=== PATIENT | female | born 1945 | race Caucasian/White ===

== ENCOUNTER 2016-12-09 09:46 | Emergency (ER) | payer OTHER, MEDICARE ==
[2016-12-09 10:26] VITALS: BP 174/60; PULSE 78; RESP 18; O2SAT 97
--- NOTE | 2016-12-09 10:41 | UCPHY ---
H & P Time Seen by Provider: 12/09/16 09:55 Patient Type: Established HPI/ROS: This patient has knee and foot pain she fell down 3 stairs on December 08, the day before arrival when she slipped on ice. She denies any other injuries. She reports moderate pain to the medial left knee at baseline then goes to 8/10 intensity with walking or other movements. She reports the foot pain is vague in mild notable in the lateral aspect of the midfoot and forefoot. She is still able to bear weight on the foot. ROS: She reports no head injury. No other HEENT complaints. Musculoskeletal: No neck or back pain no other extremity injuries. Neuro: No numbness or tingling integumentary: No lacerations. 7 point ROS is otherwise negative Smoking Status: Never smoked Physical Exam: Physical Exam Vital signs are normal. General: Pleasant obese 71-year-old female No acute distress HEENT: Atraumatic. Eyes: Pupils equal and react to light. Extraocular motions are intact. Lungs: No respiratory distress. No chest wall tenderness Back: Nontender Extremities: Atraumatic except for left lower extremity Left knee exam: She has moderate medial tenderness over the MCL ligament. Minimal posterior tenderness. No significant effusion. No patellar tenderness. She has increased pain with valgus stress to the knee but no notable laxity. Ramila's reveals mild laxity but it seems symmetric with the uninjured knee. No pain or laxity with varus stress. Cardiac: Brisk capillary refill is intact throughout. Pulses are 2+ and symmetric in the affected extremity. Skin: No rash or pallor. Neuro: Alert and oriented x3 with no sensorimotor deficits. Initial differential diagnosis: MCL sprain, tibial plateau fracture, foot contusion versus sprain versus fracture Constitutional: Initial Vital Signs Heart Rate 78 12/09/16 09:54 Respiratory Rate 18 12/09/16 09:54 Blood Pressure 174/60 H 12/09/16 09:54 O2 Sat (%) 97 12/09/16 09:54 O2 Delivery Mode Room Air Allergies/Adverse Reactions: codeine [Codeine] Allergy (Unknown, Verified 05/23/16 15:27) MAKES SPACY metformin Allergy (Verified 12/09/16 09:52) Home Medications: Medication Instructions Recorded ASPIRIN 05/23/16 Cephalexin [Keflex] 500 mg PO BID 10 Days 05/23/16 Coq-10 05/23/16 GABAPENTIN 05/23/16 INSULIN LISPRO humALOG 75/25 05/23/16 LEVOTHYROXINE SODIUM 05/23/16 Labetalol HCl 05/23/16 Lipitor 05/23/16 Losartan Potassium 05/23/16 Lumigan 0.01% (*) 05/23/16 amLODIPine BESYLATE 05/23/16 MDM/Departure - MDM Diagnostics: Knee x-ray: I read this as negative. Dr. Vila, our radiologist is concerned about potential subtle tibial plateau fracture. CT scan of the knee reveals no tibial plateau fracture. Foot x-ray: Negative for fracture by my interpretation ED Course/Re-evaluation: I counseled patient regarding her MCL sprain. She is placed in a knee immobilizer. I explained the need to follow up with orthopedic physician. I think that her foot injuries a contusion or minimal strain that does require splinting. No other evidence of significant injuries. - Depart Disposition: Home, Routine, Self-Care Clinical Impression: Knee MCL sprain Qualifiers: Encounter type: initial encounter Laterality: left Qualifier Code: (S83.412A) Sprain of medial collateral ligament of left knee, initial encounter Condition: Good Instructions: Knee Sprain (ED), Crutch Instructions (ED) Additional Instructions: Diagnosis: MCL sprain if knee 2. Foot contusion or strain Plan: Cane or crutches Knee immobilizer whenever up and about Call the orthopedist-Dr. Blevins listed below to arrange follow-up appointment for this week for further evaluation. Ibuprofen and Tylenol as needed for pain Return for any significant worsening despite the treatment plan. Referrals: Jermaine Chapa MD [Primary Care Provider] - As per Instructions Lester Blevins MD [Medical Doctor] - As per Instructions - PQRS PQRS Measurement: 134: Depression screening and followup, PRIME MD-PHQ2 (12 years and older) Over the last 2 weeks, how often have you been bothered by any of the following problems? 1. Feeling down, depressed, or hopeless? 2. Little interest or pleasure in doing things? Patient answered no to both 1 and 2 130: Documentation of medications. Reviewed all patient medications, doses, route and frequency. 226: Do you smoke? 47: 65 and older: Advanced care planning. Patient designates surrogate decision maker as sister-Lori Torres 51: 18 years old and older with diagnosis of COPD, spirometry performance. NA 52: 18 years old and older with COPD and symptoms of COPD or FEV1<60% predicted prescribed a B Agonist. NA
--- NOTE | 2016-12-09 10:44 | DX ---
Left Knee , 5 views, including a sunrise view, 10:07 a.m. History: Pain post trauma. Fall. Comparison: None Findings: There is possibly a medial corner fracture of the medial tibial plateau seen on the oblique view. There is a small cortical development involving the lateral margin of the lateral tibial plate au. There is hypertrophic ridging of the posterior tibial plateau. No effusion or dislocation is iden tified. There are surgical clips along the posterior medial aspect of the distal thigh and proximal c michael suggesting prior vascular disease. Impression: Possible medial tibial plateau corner fracture and focal impaction fracture of the latera l tibial plateau weightbearing surface. Results called to Dr. Jan Rebolledo at 10:38 a.m.
--- NOTE | 2016-12-09 10:47 | DX ---
Left Foot , Three History:Pain post trauma. Fall. Fifth metatarsal pain. Comparison: None Findings: No fracture or malalignment is identified. There is chronic periosteal thickening of the se cond and fourth metatarsals and system with chronic stress. There is osteoarthritic change with promi nent subcortical cyst formation of multiple joints in the mid foot. There is mild paste planus. There is a prominent plantar calcaneal spur. There is dorsal soft tissue swelling at the level of the mid foot. 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 Impression: No fracture identified. The fifth metatarsal is specifically normal.
--- NOTE | 2016-12-09 11:20 | CT ---
CT Lower Extremity, Left Knee History: Left knee injury. Evaluate for possible tibial plateau fracture. Comparison: X-rays performed today. Technique: 0.625 mm helical images were obtained of the knee without contrast. Multiplanar reformatio n was performed. Radiation dose reduction technique was utilized. Findings: No evidence for acute fracture or dislocation. There is mild joint narrowing and periarticu lar spurring in all three compartments and subarticular sclerosis. No significant joint effusion. No evidence for soft tissue mass or abnormal fluid collection. Impression: No evidence for acute fracture. Mild tricompartment degenerative change. Results called to Dr. Amilcar Rebolledo.
== END 2016-12-09 11:27 | disposition home or self-care (01) ==
LOC: CED 09:46
DX: S83.412A Sprain of medial collateral ligament of left knee, initial encounter (principal); W00.1XXA Fall from stairs and steps due to ice and snow, initial encounter; Z88.5 Allergy status to narcotic agent
CPT/HCPCS: 73564; 73630; 73700; G0463; L1830; 99214-PO

== ENCOUNTER 2017-04-08 20:00 | Observation (INO) | payer OTHER, MEDICARE ==
[2017-04-08] MEDS ORDERED: predniSONE 20 MG TAB PO ONE (20:15)
[2017-04-08] MEDS ORDERED: IPRATROPIUM/ALBUTEROL 3 ML DEYVIAL IH ONE (20:16)
--- NOTE | 2017-04-08 20:29 | EDPHY ---
H & P - Medical/Surgical History Hx Asthma: No Hx Chronic Respiratory Disease: No Hx Diabetes: Yes Hx Cardiac Disease: Yes Hx Renal Disease: No Hx Cirrhosis: No Hx Alcoholism: No Hx HIV/AIDS: No Hx Splenectomy or Spleen Trauma: No Other PMH: CABG, HTN, DM, glaucoma, hyperlipidemia - Social History Smoking Status: Never smoked Constitutional: Initial Vital Signs Temperature (C) 37 C 04/08/17 20:09 Heart Rate 81 04/08/17 20:09 Respiratory Rate 18 04/08/17 20:09 Blood Pressure 169/104 H 04/08/17 20:09 O2 Sat (%) 95 04/08/17 20:09 O2 Delivery Mode Room Air Allergies/Adverse Reactions: metformin Allergy (Intermediate, Verified 04/08/17 20:13) Diarrhea codeine [Codeine] Allergy (Unknown, Verified 04/08/17 20:13) MAKES SPACY Home Medications: Medication Instructions Recorded ASPIRIN 05/23/16 Coq-10 05/23/16 GABAPENTIN 05/23/16 INSULIN LISPRO humALOG 75/25 05/23/16 LEVOTHYROXINE SODIUM 05/23/16 Labetalol HCl 05/23/16 Lipitor 05/23/16 Losartan Potassium 05/23/16 Lumigan 0.01% (*) 05/23/16 amLODIPine BESYLATE 05/23/16 Ipratropium 0.03% Nasal 04/08/17 Medical Decision Making - Diagnostics Imaging Results: Imaging Impressions Chest X-Ray 04/08/17 20:16 Impression: Suspect low-grade congestive heart failure. There may be an element of airways disease. Results called and discussed with Buddy Vance MD on 04/08/2017 at 21:11 Imaging: Discussed imaging studies w/ faculty i on call medical assistant Radiologist, I viewed and interpreted images myself ED Course/Re-evaluation: CHIEF COMPLAINT: Worsening painful cough HISTORY OF PRESENT ILLNESS: This patient is a 71 year old female complaining of painful persistent cough worsening over the last week. She saw her primary care physician, Dr. Chapa, last , who prescribed Ipratropium spray for cold-like symptoms. She states she is concerned because she has often developed bronchitis following colds in the past. She recalls that she developed bronchitis 2-3 times a year several years ago, and that she had whooping cough when younger. She reports her cough has worsened since , and she is coughing frequently, and cannot draw a powerful breath. She endorses achiness. She denies fever, chills, nausea, vomiting, or other associated symptoms. REVIEW OF SYSTEMS: A 10 point review of systems was performed and is negative with the exception of the elements mentioned in the history of present illness. PHYSICAL EXAM: General Appearance: Alert, well hydrated, appropriate, and non-toxic appearing. Head: Atraumatic without scalp tenderness or obvious injury Eyes: Pupils equal, round, reactive to light and accommodation, EOMI, no trauma , no injection. Ears: Clear bilaterally, no perforation, normal landmarks Nose: Atraumatic, no rhinorrhea, clear. Throat: White phlegm in posterior pharynx. There is no erythema, no lesions, normal tonsils, mucus membranes moist. Neck: Supple, non-tender, no lymphadenopathy. Respiratory: Coarse rhonchi in all reno. No retractions, no distress, and no accessory muscle use. Cardiovascular: Regular rate and rhythm, no murmurs, rubs, or gallops. Good capillary refill all extremities. Gastrointestinal: Abdomen is soft, non-tender, non-distended, no masses, no rebound, no guarding, no peritoneal signs. Musculoskeletal: Normal active ROM of all extremities, atraumatic. Neurological: Alert, appropriate, and interactive. Nonfocal neuro exam. Skin: No rashes, good turgor, no nodules on palpation. PAST MEDICAL HISTORY: Hypertension, diabetes, CABG, glaucoma, hyperlipidemia PAST SURGICAL HISTORY: Noncontributory SOCIAL HISTORY: Nonsmoker. DIAGNOSTICS/PROCEDURES/CRITICAL CARE TIME: The 12 lead EKG was interpreted by myself. See hard copy and/or "tracemaster" electronic copy for interpretation. Atrial fibrillation, ventricular rate 92. DIFFERENTIAL DIAGNOSIS: The differential diagnosis for the patient's fever included but was not limited to bronchitis, influenza, pneumonia, viral syndrome, and sepsis. MEDICAL DECISION MAKING: This patient is a 71 year old female presenting with a one-week history of persistent productive cough. Physical exam reveals phlegm in the posterior pharynx and coarse rhonchi in all reno, but no noticeable decrease in breath sounds. Plan for flu swab and chest x-ray. Plan to administer DuoNeb and 40mg PO Prednisone to relieve symptoms. Flu swab negative. X-ray shows cardiomegaly with evidence of congestive failure and possible bronchitis. Reassessed patient. Discussed x-ray results with the patient. The patient appears fatigued. Plan for EKG and to order labs including CBC, CHEM, and Troponin to further assess her cardiomegaly and fatigue. The patient states she is feeling better following administration of DuoNeb treatment and oral Prednisone. 20:58 EKG shows atrial fibrillation with controlled ventricular rate. The patient states she had atrial fibrillation prior to her CABG but states she has not followed up with cardiology for many years. She was unaware that she had been in atrial fibrillation. She states she has seen Dr. Marquez, external grinder tool , in the past, possibly last around 2011. 21:[address] Pendleton, radiologist. He reviewed the patient's chest x-ray and agrees with my impression of cardiomegaly and low-grade congestive failure. Plan for admission given her new onset atrial fibrillation and bronchitis. Labs show elevated BNP, BUN, and WBC. Lab results support suspected congestive heart failure. Plan to administer 1gm IV Ceftriaxone and 500mg IV Azithromycin to treat infection. 21:46 Spoke with hospitalist service. Dr. Deras accepts admission for new onset atrial fibrillation, congestive heart failure, and bronchitis. - Data Points Laboratory Results: Laboratory Results 04/08/17 21:00 04/08/17 21:00 04/08/17 04/08/17 04/08/17 21:00 21:00 21:00 WBC 11.70 10^3/uL H 10^3/uL (3.80-9.50) RBC 4.50 10^6/uL 10^6/uL (4.18-5.33) Hgb 13.5 g/dL g/dL (12.6-16.3) Hct 39.0 % % (38.0-47.0) MCV 86.7 fL fL (81.5-99.8) MCH 30.0 pg pg (27.9-34.1) MCHC 34.6 g/dL g/dL (32.4-36.7) RDW 12.7 % % (11.5-15.2) Plt Count 238 10^3/uL 10^3/uL (150-400) MPV 10.1 fL fL (8.7-11.7) Neut % (Auto) 76.5 % H % (39.3-74.2) Lymph % (Auto) 11.9 % L % (15.0-45.0) [place] % (Auto) 7.4 % % (4.5-13.0) Eos % (Auto) 2.6 % % (0.6-7.6) Baso % (Auto) 0.4 % % (0.3-1.7) Nucleat RBC Rel Count 0.0 % % (0.0-0.2) Absolute Neuts (auto) 8.95 10^3/uL H 10^3/uL (1.70-6.50) Absolute Lymphs (auto) 1.39 10^3/uL 10^3/uL (1.00-3.00) Absolute Monos (auto) 0.87 10^3/uL H 10^3/uL (0.30-0.80) Absolute Eos (auto) 0.30 10^3/uL 10^3/uL (0.03-0.40) Absolute Basos (auto) 0.05 10^3/uL 10^3/uL (0.02-0.10) Absolute Nucleated RBC 0.00 10^3/uL 10^3/uL (0-0.01) Immature Gran % 1.2 % H % (0.0-1.1) Immature Gran # 0.14 10^3/uL H 10^3/uL (0.00-0.10) PT 14.0 SEC SEC (12.0-15.0) INR 1.11 (0.83-1.16) APTT 30.3 SEC SEC (23.0-38.0) Sodium 137 mEq/L mEq/L (134-144) Potassium 4.6 mEq/L mEq/L (3.5-5.2) Chloride 102 mEq/L mEq/L (97-110) Carbon Dioxide 18 mEq/l L mEq/l (22-31) Anion Gap 17 mEq/L H mEq/L (8-16) BUN 35 mg/dL H mg/dL (7-23) Creatinine 1.4 mg/dL H mg/dL (0.6-1.0) Estimated GFR 37 Glucose 217 mg/dL H mg/dL (70-100) Calcium 9.3 mg/dL mg/dL (8.5-10.4) Troponin I < 0.012 ng/mL ng/mL (0-0.034) NT-Pro-B Natriuret Pep 1830 pg/mL H pg/mL (0-125) Influenza A,B Rapid 04/08/17 20:20 WBC RBC Hgb Hct MCV MCH MCHC RDW Plt Count MPV Neut % (Auto) Lymph % (Auto) [place] % (Auto) Eos % (Auto) Baso % (Auto) Nucleat RBC Rel Count Absolute Neuts (auto) Absolute Lymphs (auto) Absolute Monos (auto) Absolute Eos (auto) Absolute Basos (auto) Absolute Nucleated RBC Immature Gran % Immature Gran # PT INR APTT Sodium Potassium Chloride Carbon Dioxide Anion Gap BUN Creatinine Estimated GFR Glucose Calcium Troponin I NT-Pro-B Natriuret Pep Influenza A,B Rapid NEGATIVE FOR FLU (NEGATIVE) Medications Given: Discontinued Medications Albuterol/Ipratropium (Duoneb) 3 ml IH EDNOW ONE Stop: 04/08/17 20:17 Last Admin: 04/08/17 20:25 Dose: 3 ml Ceftriaxone Sodium/Dextrose (Rocephin 1 Gm (Premix)) 50 mls @ 100 mls/hr IV EDNOW ONE PRN Reason: Protocol Stop: 04/08/17 22:08 Last Admin: 04/08/17 21:40 Dose: 50 mls Prednisone (Prednisone) 40 mg PO EDNOW ONE Stop: 04/08/17 20:16 Last Admin: 04/08/17 20:25 Dose: 40 mg Departure - Departure Disposition: [facility] Inpatient Acute Clinical Impression: Bronchitis, Atrial fibrillation with controlled ventricular response, Congestive heart failure Condition: Fair Referrals: Jermaine Chapa MD [Primary Care Provider] - As per Instructions Report Scribed for: Buddy Vance Report Scribed by: Reyna Manning Date of Report: 04/08/17 Time of Report: 20:29
--- NOTE | 2017-04-08 21:00 | CPEKG ---
Heart Rate: 92 RR Interval: 652 QRSD Interval: 90 QT Interval: 376 QTC Interval: 466 QRS [place]: 55 T Wave [place]: 50 EKG Severity - ABNORMAL ECG - EKG Impression: ATRIAL FIBRILLATION Electronically Signed By: Buddy Vance 08-Apr-2017 22:51:15
[2017-04-08 21:11] LABS: % IMMATURE GRANULYOCYTES 1.2 % (0.0-1.1); ABSOLUTE IMMATURE GRANULOCYTES 0.14 10^3/uL (0.00-0.10); ADD DIFF? NO; ADD MORPH? NO; ADD SCAN? NO; ATYPICAL LYMPHOCYTE FLAG 0 (0-99); FRAGMENT RBC FLAG 0 (0-99); HEMOGLOBIN 13.5 g/dL (12.6-16.3); LEFT SHIFT FLG 10 (0-99); LIPEMIA HEMOLYSIS FLAG 90 (0-99); MEAN CELL HEMOGLOBIN CONCENTR. 34.6 g/dL (32.4-36.7); MEAN CELL VOLUME 86.7 fL (81.5-99.8); MEAN PLATELET VOLUME 10.1 fL (8.7-11.7); PLATELET CLUMPS FLAG 0 (0-99); PLATELET COUNT 238 10^3/uL (150-400); RED CELL DISTRIBUTION WIDTH 12.7 % (11.5-15.2)
[2017-04-08 21:18] LABS: INR 1.11 (0.83-1.16)
[2017-04-08 21:19] LABS: APTT 30.3 SEC (23.0-38.0)
[2017-04-08 21:26] LABS: ANION GAP 17 mEq/L (8-16); CALCIUM 9.3 mg/dL (8.5-10.4); CARBON DIOXIDE 18 mEq/l (22-31); CHLORIDE 102 mEq/L (97-110); CREATININE 1.4 mg/dL (0.6-1.0); GLOMERULAR FILTRATION RATE 37; GLUCOSE 217 mg/dL (70-100); POTASSIUM 4.6 mEq/L (3.5-5.2); SODIUM 137 mEq/L (134-144)
[2017-04-08 21:32] LABS: TROPONIN I < 0.012 ng/mL (0-0.034)
[2017-04-08] MEDS ORDERED: AZITHROMYCIN IV 500 MG in NS 250 ML IV ONE (21:39)
[2017-04-09] MEDS ORDERED: ONDANSETRON DISINTEGRATING 4 MG TAB PO PRN (00:16)
[2017-04-09] MEDS ORDERED: ONDANSETRON 4 MG/2 ML VIAL IVP PRN (00:16)
[2017-04-09] MEDS ORDERED: ACETAMINOPHEN 325 MG TAB PO PRN (00:16)
[2017-04-09] MEDS ORDERED: ALBUTEROL 3 ML DEYVIAL IH PRN (00:16)
[2017-04-09] MEDS ORDERED: D50W 25 GM/50 ML SYR IVP PRN (00:19)
[2017-04-09] MEDS ORDERED: INSULIN GLARGINE 100 UNITS/ML SYRINGE SC SCH (00:19)
--- NOTE | 2017-04-09 00:28 | PDGENHP ---
History and Physical - Chief Complaint cough, shortness of breath - History of Present Illness Patient is a 71 year old female with history of CAD s/p CABG (2010), HTN, HLD, DM2 who presented to the [facility] with complaint of cough, congestion and shortness of breath. Patient states her symptoms started about 5 days ago, with nasal congestion, headache, sneezing. This progressed to cough, which became productive, as well as shortness of breath with exertion. She went to her PMD's office about 3 days ago, was told she likely had a viral infection, was given a prescription for nebs and symptomatic treatment. Today, symptoms have continued to worsen, the cough is preventing her from resting, she describes significant shortness of breath with minimal movements, so she went to the [facility] for evaluation. She denies any associated chest pain, palpitations, lightheadedness , nausea, vomiting, diarrhea. She also denies any recent travel or sick contacts On arrival at the [facility], patient was afebrile and hemodynamically stable, saturating well on room air. Labs revealed mild leukocytosis, negative troponin , elevated BNP. EKG revealed afib (new), stable rate. CXR did not show obvious infiltrate, but did show findings consistent with bronchitis. She was given IV antibiotics and transferred to [facility] for admission. History Information - Allergies/Home Medication List Allergies/Adverse Reactions: metformin Allergy (Intermediate, Verified 04/08/17 20:13) Diarrhea codeine [Codeine] Allergy (Unknown, Verified 04/08/17 20:13) MAKES SPACY Home Medications: ASPIRIN 05/23/16 [Last Taken Unknown] Coq-10 05/23/16 [Last Taken Unknown] GABAPENTIN 05/23/16 [Last Taken Unknown] INSULIN LISPRO humALOG 75/25 05/23/16 [Last Taken Unknown] LEVOTHYROXINE SODIUM 05/23/16 [Last Taken Unknown] Labetalol HCl 05/23/16 [Last Taken Unknown] Lipitor 05/23/16 [Last Taken Unknown] Losartan Potassium 05/23/16 [Last Taken Unknown] Lumigan 0.01% (*) 05/23/16 [Last Taken Unknown] amLODIPine BESYLATE 05/23/16 [Last Taken Unknown] Ipratropium 0.03% Nasal 04/08/17 [Last Taken Unknown] I have personally reviewed and updated: family history, medical history, social history, surgical history - Past Medical History Additional medical history: CAD s/p CABG 2009, had brief episode of afib ronny- operatively, but none since. HTN. HLD. DM2 - Surgical History Additional surgical history: CABG. Shoulder arthroscope - Family History Positive for: CAD (in father) - Social History Smoking Status: Former smoker (x 30 years, quit about 30 years ago) Alcohol Use: None Drug Use: None Additional social history: Patient lives alone, walks independently, independent in ADLs at baseline Review of Systems ROS: 10pt was reviewed & negative except for what was stated in HPI & below Physical Exam Temp Pulse Resp BP Pulse Ox 37.2 C 88 16 158/74 H 95 04/08/17 23:30 04/08/17 23:30 04/08/17 23:30 04/08/17 23:30 04/08/17 23:30 O2 (L/minute) 2 Constitutional: no apparent distress, appears nourished, not in pain, obese Eyes: PERRL, anicteric sclera, EOMI Ears, Nose, Mouth, Throat: moist mucous membranes, hearing normal, ears appear normal, no oral mucosal ulcers Cardiovascular: regular rate and rhythym, no murmur, rub, or gallop, pulses symmetric bilaterally, No JVD, No edema Peripheral Pulses: 2+: dorsalis-pedis (R), dorsalis-pedis (L) Respiratory: no respiratory distress, no rales or rhonchi, clear to auscultation Gastrointestinal: normoactive bowel sounds, soft, non-tender abdomen, no palpable masses, No tenderness, No guarding, No rebound Genitourinary: no bladder fullness, no bladder tenderness Skin: warm, normal color, no rashes or abrasions, no fluctuance, no induration, No mottled Musculoskeletal: full muscle strength, no muscle tenderness, normal joint ROM, no joint effusions Neurologic: AAOx3, sensation intact bilaterally, CN II-XII Intact, No weakness, No numbness, No facial droop Psychiatric: interacting appropriately, not anxious, not encephalopathic, thought process linear Lab Data & Imaging Review 04/09/17 03:42 04/08/17 21:00 WBC 11.70 10^3/uL (3.80-9.50) H 04/08/17 21:00 RBC 4.50 10^6/uL (4.18-5.33) 04/08/17 21:00 Hgb 13.5 g/dL (12.6-16.3) 04/08/17 21:00 Hct 39.0 % (38.0-47.0) 04/08/17 21:00 MCV 86.7 fL (81.5-99.8) 04/08/17 21:00 MCH 30.0 pg (27.9-34.1) 04/08/17 21:00 MCHC 34.6 g/dL (32.4-36.7) 04/08/17 21:00 RDW 12.7 % (11.5-15.2) 04/08/17 21:00 Plt Count 238 10^3/uL (150-400) 04/08/17 21:00 MPV 10.1 fL (8.7-11.7) 04/08/17 21:00 Neut % (Auto) 76.5 % (39.3-74.2) H 04/08/17 21:00 Lymph % (Auto) 11.9 % (15.0-45.0) L 04/08/17 21:00 [place] % (Auto) 7.4 % (4.5-13.0) 04/08/17 21:00 Eos % (Auto) 2.6 % (0.6-7.6) 04/08/17 21:00 Baso % (Auto) 0.4 % (0.3-1.7) 04/08/17 21:00 Nucleat RBC Rel Count 0.0 % (0.0-0.2) 04/08/17 21:00 Absolute Neuts (auto) 8.95 10^3/uL (1.70-6.50) H 04/08/17 21:00 Absolute Lymphs (auto) 1.39 10^3/uL (1.00-3.00) 04/08/17 21:00 Absolute Monos (auto) 0.87 10^3/uL (0.30-0.80) H 04/08/17 21:00 Absolute Eos (auto) 0.30 10^3/uL (0.03-0.40) 04/08/17 21:00 Absolute Basos (auto) 0.05 10^3/uL (0.02-0.10) 04/08/17 21:00 Absolute Nucleated RBC 0.00 10^3/uL (0-0.01) 04/08/17 21:00 Immature Gran % 1.2 % (0.0-1.1) H 04/08/17 21:00 Immature Gran # 0.14 10^3/uL (0.00-0.10) H 04/08/17 21:00 PT 14.0 SEC (12.0-15.0) 04/08/17 21:00 INR 1.11 (0.83-1.16) 04/08/17 21:00 APTT 30.3 SEC (23.0-38.0) 04/08/17 21:00 Sodium 137 mEq/L (134-144) 04/08/17 21:00 Potassium 4.6 mEq/L (3.5-5.2) 04/08/17 21:00 Chloride 102 mEq/L (97-110) 04/08/17 21:00 Carbon Dioxide 18 mEq/l (22-31) L 04/08/17 21:00 Anion Gap 17 mEq/L (8-16) H 04/08/17 21:00 BUN 35 mg/dL (7-23) H 04/08/17 21:00 Creatinine 1.4 mg/dL (0.6-1.0) H 04/08/17 21:00 Estimated GFR 37 04/08/17 21:00 Glucose 217 mg/dL (70-100) H 04/08/17 21:00 Calcium 9.3 mg/dL (8.5-10.4) 04/08/17 21:00 Troponin I < 0.012 ng/mL (0-0.034) 04/08/17 21:00 NT-Pro-B Natriuret Pep 1830 pg/mL (0-125) H 04/08/17 21:00 Influenza A,B Rapid NEGATIVE FOR FLU (NEGATIVE) 04/08/17 20:20 Visualized and Interpreted Chest x-ray results: Yes Chest X-Ray results: no infiltrate Visualized and Interpreted EKG results: Yes EKG additional interpertation: afib, without evidence of ischemia Assessment & Plan Assessment: Patient is a 71 year old female with DM2, HTN, HLD, CAD who presents to the [facility] with 5 days of URI type symptoms and significant dyspnea. [facility] evaluation reveals likely bronchitis, new onset afib, possibly new onset CHF. Plan: # dyspnea Patient's report of 5 days of cough, congestion, as well as the mild leukocytosis and cxr clear of infiltrates, suggest an acute bronchitis. She was initiated on antibiotics for presumed bacterial bronchitis in the [facility], will continue azithromycin coverage. Patient also has a distant smoking history, so reactive airway disease/copd, triggered by acute infection may also be contributing. Patient denies history of CHF, but BNP is elevated. Will rule out cardiac component of dyspnea with TTE, r/o ACS with serial troponin. # atrial fibrillation Rate controlled. CHADSVASc is > 4 and patient agreeable to systemic anticoagulation. Initiated eliquis, currently not requiring rate controlling meds. Will cont to monitor on telemetry. # DM2, hyperglycemia Hyperglycemic on presentation, she states her DM2 has been poorly controlled recently. Hyperglycemia likely exacerbated by acute infection. Will resume home long acting insulin, provide sliding scale coverage and check HbA1C. # hypertension Stable, continue home meds once confirmed. #dispo: admit to observation status # gen: cardiac/diabetic diet DVT ppx: lovenox if admitted for > 24 hours Full code
[2017-04-09] MEDS: GUAIFENESIN/DM 10 ML UDCUP PO PRN ×3 (01:26→11:29)
[2017-04-09 04:22] LABS: % IMMATURE GRANULYOCYTES 1.5 % (0.0-1.1); ABSOLUTE IMMATURE GRANULOCYTES 0.19 10^3/uL (0.00-0.10); ADD DIFF? NO; ADD MORPH? NO; ADD SCAN? NO; ATYPICAL LYMPHOCYTE FLAG 0 (0-99); FRAGMENT RBC FLAG 0 (0-99); HEMATOCRIT 38.5 % (38.0-47.0); HEMOGLOBIN 13.1 g/dL (12.6-16.3); LEFT SHIFT FLG 30 (0-99); LIPEMIA HEMOLYSIS FLAG 90 (0-99); MEAN CELL HEMOGLOBIN 30.2 pg (27.9-34.1); MEAN CELL VOLUME 88.7 fL (81.5-99.8); MEAN PLATELET VOLUME 10.5 fL (8.7-11.7); PLATELET CLUMPS FLAG 10 (0-99); PLATELET COUNT 226 10^3/uL (150-400); RED BLOOD CELL COUNT 4.34 10^6/uL (4.18-5.33); RED CELL DISTRIBUTION WIDTH 12.5 % (11.5-15.2)
[2017-04-09 04:31] LABS: APTT 31.6 SEC (23.0-38.0); INR 1.06 (0.83-1.16); PROTIME(PATIENT) 13.7 SEC (12.0-15.0)
[2017-04-09 04:50] LABS: ANION GAP 12 mEq/L (8-16); CALCIUM 9.5 mg/dL (8.5-10.4); CARBON DIOXIDE 17 mEq/l (22-31); CHLORIDE 104 mEq/L (97-110); CHOLESTEROL 180 mg/dL (140-220); CHOLESTEROL/HDL RATIO 3.67 RATIO (1.00-4.44); CREATININE 1.3 mg/dL (0.6-1.0); GLOMERULAR FILTRATION RATE 40; GLUCOSE 405 mg/dL (70-100); HIGH DENSITY LIPOPROTEIN 49 mg/dL (40-85); LDL/HDL RATIO 2.37 RATIO (1.00-3.22); LOW DENSITY LIPOPROTEIN 116 mg/dL (80-100); MAGNESIUM 1.6 mg/dL (1.6-2.3); NON-HIGH DENSITY LIPOPROTEIN 131 mg/dL (90-129); POTASSIUM 5.4 mEq/L (3.5-5.2); SODIUM 133 mEq/L (134-144); TRIGLYCERIDE 75 mg/dL (35-135); VERY LOW DENSITY LIPOPROTEINS 15 mg/dL (8-25)
[2017-04-09 04:53] LABS: TROPONIN I < 0.012 ng/mL (0-0.034)
[2017-04-09 05:57] LABS: CREATINE KINASE-MB FRACTION 3.35 ng/mL (0-3.19)
[2017-04-09] MEDS: IPRATROPIUM/ALBUTEROL 3 ML DEYVIAL IH SCH ×3 (06:04→16:31)
[2017-04-09 06:07] LABS: CK-MB INTERPRETATION NEGATIVE (NEGATIVE)
[2017-04-09] MEDS ORDERED: INSULIN GLARGINE 100 UNITS/ML SYRINGE SC ONE (07:55)
[2017-04-09] MEDS: INSULIN LISPRO 100 UNIT/ML SC SCH ×2 (08:12→12:31)
[2017-04-09] MEDS ORDERED: APIXABAN 5 MG TAB PO SCH (09:00)
[2017-04-09] MEDS ORDERED: AZITHROMYCIN 250 MG TAB PO SCH (09:00)
[2017-04-09] MEDS ORDERED: D10W 250 ML PRN HYPOGLYCEMIA IV (14:30)
[2017-04-09 15:39] VITALS: BP 175/75; PULSE 84; TEMP 97.7
[2017-04-09] MEDS ORDERED: IPRATROPIUM 0.06% NASAL SPRAY EACHNARE SCH (16:00)
[2017-04-09] MEDS ORDERED: GABAPENTIN 300 MG CAP PO SCH (16:00)
--- NOTE | 2017-04-09 16:13 | GDS ---
[f rep st] DISCHARGE SUMMARY DISCHARGE DIAGNOSES: 1. Acute bronchitis. 2. Coronary artery disease status post CABG. 3. Atrial fibrillation, initiating anticoagulation. 4. Hypertension. 5. Hyperlipidemia. 6. Diabetes. HISTORY OF PRESENT ILLNESS: A 71-year-old female presenting with cough and shortness of breath. For details of patient's initial presentation, please see the history and physical dated 04/08/2017. CONSULTATIVE SERVICES: None. IMAGING: On 04/08/2017, the patient had a transthoracic echocardiogram. Results are pending at the time of this dictation. HOSPITAL COURSE: By issue: 1. Shortness of breath and cough. The patient had chest x-ray imaging that was reassuring and nega tive for pneumonia. She was initiated on IV azithromycin and inhaled medications, with marked impro vement in her symptoms. She has been weaned off oxygen and has improved control of her cough. She will be discharged to complete a course of azithromycin as well as cough control with Mucinex and al buterol inhaler. The patient is to follow with her outpatient provider for followup post completion of her antibiotic course. 2. Atrial fibrillation. The patient was in atrial fibrillation at presentation. [id number] scor e is 4 in calculation. She does have a concurrent cardiac history. She was amenable to initiating anticoagulation. Eliquis was started and a prescription for Eliquis at disposition has been provide d. She will continue to follow with her outpatient provider. 3. Hypertension. No changes were made to her extensive antihypertensive regimen. MEDICATIONS AT THE TIME OF DISPOSITION: Please reference med rec printed on 04/09/2017. FOLLOWUP APPOINTMENTS: With her primary care provider in the next 1-2 weeks for post disposition fabien hope, and ultimately with Cardiology for management of her coronary disease, atrial fibrillation a nd hypertension. PENDING STUDIES: At the time of this dictation, include a transthoracic echocardiogram. TIME SPENT: I spent greater than 30 minutes in the planning and coordination of this discharge. /[id number]/MODL
[2017-04-09 16:32] VITALS: RESP 14; O2SAT 90
--- NOTE | 2017-04-09 16:36 | ECHO ---
[id number] + + [address] : : [place] [address] : : [phone] + + Adult Echocardiographic Report + + :Name: CHARLIE LOVE LStudy Date: 04/09/2017 11:12 AM : : Hospital Admission Number: [id number] : :: 1945 Gender: Female Height: 66 in : :Age: 71 yrs Race: WH,UN,U,White,Unknown Weight: 257 lb : :Reason For Study: Eval LV Fx : : BSA: 2.2 meters2: :History: Bronchitis, Cough, Hx of CABG : + + MMode/2D Measurements \T\ Calculations IVSd: 1.1 cm LVIDd: 3.8 cm FS: 45.1 % Ao root diam: 3.2 cm LVPWd: 1.2 cm LVIDs: 2.1 cm EDV(Teich): 62.9 ml ACS: 1.5 cm ESV(Teich): 14.4 ml EF(Teich): 77.1 % Normal Measurement Values: + + :LVIDd (3.5-5.7cm) IVSd (0.6-1.1cm) LVPWd (0.6-1.1cm) Aortic Root (2.0-3.7cm)Left Atrium (1.5-4.0cm): :LV Vol(d) (76-115ml) LV Vol(s) (29-48ml) Ejec Fraction (50-65%)PV Dario (0.6- 1.2m/s) TV Dario (0.4-1.0m/s) : :MV E Dario (0.8-1.0m/s)MV A Dario (0.3-1.0m/s)LVOT Dario (0.7-1.2m/s) Asc Ao Dario ( 0.9-1.8m/s) : + + Doppler Measurements \T\ Calculations MV E max dario: MV V2 max: Ao V2 max: LV V1 max: 112.3 cm/sec 176.5 cm/sec 168.3 cm/sec 111.1 cm/sec MV A max dario: MV max PG: Ao max PG: LV V1 max P.1 cm/sec 12.5 mmHg 11.3 mmHg 4.9 mmHg MV E/A: 0.76 MV V2 mean: 114.8 cm/sec MV mean P.9 mmHg MV V2 VTI: 44.1 cm PA V2 max: 133.0 cm/sec PA max P.1 mmHg Left Ventricle The left ventricle is normal in size. There is mild concentric left ventricular hypertrophy. The left ventricular ejection fraction is normal. There is Doppler evidence for diastolic dysfunction. The left ventricle is hyperdynamic. Ejection Fraction = 77%. The left ventricular wall motion is normal. Right Ventricle The right ventricle is normal in size and function. Atria The left atrial size is normal. Right atrial size is normal. Mitral Valve There is mild to moderate mitral annular calcification. There is no mitral valve stenosis. There is no mitral regurgitation noted. Tricuspid Valve The tricuspid valve is normal in structure and function. There is trace tricuspid regurgitation. Right ventricular systolic pressure is normal. Aortic Valve The aortic valve is normal in structure and function. There is no aortic stenosis. There is no aortic insufficiency. Pulmonic Valve The pulmonic valve is normal in structure and function. There is no pulmonic valvular regurgitation. Great Vessels The aortic root is normal size. Pericardium/Pleural There is no pericardial effusion. Conclusion A complete two-dimensional transthoracic echocardiogram was performed (2D, M-mode, Doppler and color flow Doppler). Mild concentric LVH with hyperdynamic LV fucntion. EF of 77% Diastolic dysfunction/ The right ventricle is normal in size and function. There is mild to moderate mitral annular calcification. Trace tricuspid regurgitation. There is no pericardial effusion. Final Reading Physician: Zoila Sweeney signed on 04/09/2017 04:34 PM Ordering Physician: Anum Carson Performed By: Marcial Lackey, RDCS
[2017-04-09] MEDS ORDERED: INSULIN LISPRO 100 UNIT/1 ML VIAL HIGH SC SCH (18:00)
[2017-04-09] MEDS ORDERED: LATANOPROST 0.005% 2.5 ML OPHT DROPS EACHEYE SCH (21:00)
[2017-04-09] MEDS ORDERED: NON-FORMULARY NEW DRUG (Insulin Detemir [Levemir] 40 UNIT) SQ SCH (21:00)
[2017-04-09] MEDS ORDERED: INSULIN GLARGINE 100 UNIT/ML VIAL SC SCH (21:00)
[2017-04-09] MEDS ORDERED: LABETALOL HCL 200 MG TAB PO SCH (21:00)
[2017-04-09] MEDS ORDERED: amLODIPine BESYLATE 5 MG TAB PO SCH (21:00)
[2017-04-10] MEDS ORDERED: LEVOTHYROXINE 25 MCG TAB PO SCH (06:00)
[2017-04-10] MEDS ORDERED: INSULIN ASPART SQ SCH (08:00)
[2017-04-10] MEDS ORDERED: TRIAMTERENE/HCTZ 37.5/25 1 EACH CAP PO SCH (09:00)
[2017-04-10] MEDS ORDERED: ASPIRIN EC 81 MG TAB PO SCH (09:00)
[2017-04-10] MEDS ORDERED: LOSARTAN POTASSIUM 50 MG TAB PO SCH (09:00)
[2017-04-10] MEDS ORDERED: Herbals/Supplements -Info Only PO SCH (09:00)
== END 2017-04-09 16:52 | disposition home or self-care (01) ==
LOC: CED 20:00 → CEDHOLD 21:35 → F2W 23:29
PROVIDERS: ADMIT Hospitalist; ATTEND Hospitalist
DX: J20.9 Acute bronchitis, unspecified (principal); I48.91 Unspecified atrial fibrillation; I51.7 Cardiomegaly; E11.65 Type 2 diabetes mellitus with hyperglycemia; I25.10 Atherosclerotic heart disease of native coronary artery without angina pectoris; I10 Essential (primary) hypertension; E78.5 Hyperlipidemia, unspecified; Z87.891 Personal history of nicotine dependence; Z95.1 Presence of aortocoronary bypass graft; Z79.4 Long term (current) use of insulin
CPT/HCPCS: 71020; 93005; 93306; G0378; J0456; J0696; J1815; 80048-PO; 83880-PO; 84484-PO; 85025-PO; 85610-PO; 85730-PO; 87400-PO